=== PATIENT | female | born 1995 | race Caucasian/White ===

== ENCOUNTER 2016-05-15 11:32 | Emergency (ER) | payer OTHER ==
[2016-05-15 12:36] VITALS: BP 135/61; PULSE 99; TEMP 98.6; BMI 36.5
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
== END 2016-05-15 13:28 | disposition home or self-care (01) ==
LOC: EDMC 11:32
DX: M54.9 Dorsalgia, unspecified (principal); V49.40XA Driver injured in collision with unspecified motor vehicles in traffic accident, initial encounter; Y93.9 Activity, unspecified; Y92.410 Unspecified street and highway as the place of occurrence of the external cause
CPT/HCPCS: 99282